=== PATIENT | female | born 1975 | race Caucasian/White ===

== ENCOUNTER 2016-09-16 20:06 | Emergency (ER) | payer OTHER ==
[~2016-09-16] VITALS: Ht 175.3 cm; Wt 68.2 kg
[2016-09-16 20:16] VITALS: BP 157/92; PULSE 87; RESP 18; O2SAT 100
--- NOTE | 2016-09-16 20:51 | DRSVH ---
PROCEDURE: X-RAY CHEST, TWO VIEWS ([id number]) INDICATIONS: Cough TECHNIQUE: 2 views of the chest were acquired. COMPARISON: None. FINDINGS: Surgical changes and devices: None. Lungs and pleura: No pleural effusions or pneumothorax. Lungs are clear. Mediastinum: Mediastinal contours are normal. Heart size is normal. Bones and chest wall: No suspicious bony abnormalities. Soft tissues appear unremarkable. IMPRESSION: No acute process. Dictated by: Ciara Mtz M.D. on 09/16/2016 at 20:49 Approved by: Ciara Mtz M.D. on 09/16/2016 at 20:49
--- NOTE | 2016-09-16 22:41 | ED.REPORT ---
HPI-Dyspnea / Wheezing Date of Service September 16, 2016 ED Provider: Miguel Coto MD Pt is a 40 y.o. female who presents to the ED c/o an intermittent green productive cough onset several weeks ago. Pt states that today she had a coughing "fit" that caused her to hyperventilate and have a near syncopal episode. She states that she has an inhaler from a previous pneumonia and that it has provided no relief. She reports associated pleuritic pain due to cough. She denies recent steroid use. Nursing Notes Stated Complaint: COUGHING, BLACKED OUT, MUSCLE AND RIB PAIN Chief Complaint: Respiratory Complaints Nursing Notes Reviewed: Yes Allergies: Coded Allergies: No Known Allergies (Unverified , 09/16/16) Scheduled PRN Benzonatate (Benzonatate) 200 Mg Capsule 200 MG PO TID PRN PRN For Cough General Time Seen by MD: 22:40 Chief Complaint Cough Hx Obtained From: Patient Arrived By: Walk-in Sudden in Onset?: Yes Location: : Chest left: Chest right Quality: Painful Severity: Current: Moderate Past Medical History Past Medical History Denies Past Surgical History None reported Social History Alcohol Use: "Social" Ambulatory Status Independent Review of Systems Respiratory: Reports: Pleuritic pain, Prod cough, green Complete sys rev & neg: except as marked. Neurologic: Reports: Syncope (Near) Physical Exam Initial Vital Signs Vital Signs (First) Date Time Temp Pulse Resp B/P Pulse Ox O2 Delivery O2 Flow Rate FiO2 09/16/16 20:16 36.0 87 18 157/92 100 Room Air Initial VS: Reviewed, Vital signs abnormal General/Constitutional: Awake, Alert, No acute distress, Well appearing, Well developed, Well hydrated, Well nourished, Not toxic appearing Neck: Atraumatic Respiratory / Chest: Atraumatic, Breath sounds NL, Breath sounds = bilat, No respiratory distress, No rales, No wheezing Occasional rhonchi No focal changes Re-Eval/Medical Decision Med Decision/Clinical Course 40-year-old generally healthy female with a cough that is interfering with sleep. She has been sick for a few days. She does not smoke. Chest x-ray is negative. Tessalon helped but did not suppress the cough completely. She was discharged home with a prepack of Vicodin, one or 2 tablets at bedtime, #10 dispensed. Risks of medications discussed. Tessalon 200 mg by mouth 3 times a day when necessary, #15 prescription written. Follow up with her primary doctor. Source of Hx: Old records Re-Evaluation/Progress : Time of Eval: 00:57 Re-Evaluation/Progress Note: Pt rechecked. Pt feels improved. Discussed plan for discharge, pt understands and agrees with plan. Counseled Regarding: Diagnosis, Lab results, Need for follow-up, When/why to return to ED Discharge & Departure Impression: Primary Impression: Acute viral bronchiolitis Disposition: Home Discharge Condition All VS Reviewed: Yes Condition: Improved Patient Instructions: Acute Bronchitis (ED) Additional Instructions: Chest x-ray is normal, no evidence of pneumonia. Antibiotics will not help with bronchitis. Benzonatate (Tessalon perles) 200 mg by mouth 3 times a day when necessary, #15 prescribed. Hydrocodone/acetaminophen 5/325, one or 2 tablets at bedtime as needed for cough, #10 dispensed. Follow up as needed with your primary doctor for persistent symptoms. Referrals: ROSSY MACK (PCP) Roxyibcristi Attestation Portions of this note were transcribed by Jasmin Reyes. I, personally performed the history, physical exam and medical decision-making; I reviewed and confirmed the accuracy of the information in the transcribed note. Signed by: Mary Lai, 09/17/16 and 0057. copies to: ROSSY MACK Howard L MD September 16, 2016 22:41 JASMIN REYES September 16, 2016 22:45
[2016-09-17] MEDS ORDERED: _HYDROcodone/APAP 5-325 mg Tablet PO PRN (01:00)
[2016-09-17] MEDS ORDERED: BENZ200C44 PO (01:05)
== END 2016-09-17 01:57 | disposition home or self-care (01) ==
LOC: SED 20:06
DX: J20.8 Acute bronchitis due to other specified organisms (principal)